=== PATIENT | male | born 1970 | race Two or more races ===

== ENCOUNTER 2016-12-26 19:12 | Emergency (ER) | payer MEDICAID ==
[2016-12-26] MEDS ORDERED: Sodium Chloride 0.9% 10 ML Syringe FLUSH PRN (19:39)
[2016-12-26 19:47] VITALS: BP 151/97
--- NOTE | 2016-12-26 20:06 | EDM.PDOC ---
ED HPI Trauma - General Chief Complaint: Upper Extremity Injury/Pain Stated Complaint: PUT A SCREW INTO HIS MIDDLE FINGER ON HIS LEFT BAKER Time Seen by Provider: 12/26/16 19:31 Source: Reports: Patient, Family (daughter) History Limitations: Reports: Language barrier - History of Present Illness INITIAL COMMENTS - FREE TEXT/NARRATIVE: Patient presents for evaluation and treatment of injury to the left hand third finger. 2 days ago the patient was screwing a board. The screw went through the board and punctured his left hand third finger on the ventral DIP joint. He states that since then he has been having extreme pain in the 3rd finger. He reports that when the fingers are flexed, the pain improves. He has extreme pain with extending the finger that radiates into his palm. He denies much pus or drainage from the puncture wound. He denies any fevers, chills, nausea or vomiting. He has also noticed some numbness and tingling to the finger. Tetanus is up-to-date. Patient speaks primarily [place]. His daughters are present translating for him. Pain/Injury Location: Reports: upper extremity, left Allergies/ADRs: Allergies No Known Allergies Allergy (Verified 12/26/16 19:27) Home Medications: Ambulatory Orders Acetaminophen/oxyCODONE [Percocet 325-5 MG] 1 tab PO Q6H PRN #15 tablet Past Medical History - Past Health History Medical/Surgical History: Denies Medical/Surgical History Social & Family History - Tobacco Use Smoking Status *Q: Never Smoker - Caffeine Use Caffeine Use: Reports: None - Alcohol Use Days Per Week of Alcohol Use: 2 Number of Drinks Per Day: 1 Total Drinks Per Week: 2 - Recreational Drug Use Recreational Drug Use: No Review of Systems - Review of Systems Review Of Systems: See Below Constitutional: Denies: chills, fever GI/Abdominal: Denies: Nausea, Vomiting Musculoskeletal: Reports: hand pain (left hand 3rd finger), joint swelling ( left hand 3rd finger ) Skin: Reports: erythema (involving the left hand 3rd finger to the distal palm) , wound (approximately 5mm puncture wound to the left hand 3rd finger ventral aspect over the DIP joint) Neurological: Reports: Numbness (left hand 3rd finger) Trauma Exam - Physical Exam Exam: See Below Exam Limited By: No limitations General Appearance: Reports: alert, WD/WN, no apparent distress Respiratory Exam: Reports: no respiratory distress, lungs clear, normal breath sounds Cardiovascular: Reports: normal peripheral pulses (2+ radial pulses bilterally ) , regular rate, rhythm Extremities: Reports: pain with movement (severe pain with extension to the left hand 3rd finger; pain improves with flexion), tenderness (to the left 3rd finger), other (left hand 3rd finger is erythematous and swollen.) Neurologic: Reports: alert, normal mood/affect Skin: Reports: Normal color, Warm/dry, Other (approximately 5mm closed puncture wound to the left hand 3rd ventral finger over the DIP joint) ED TRAUMA EXTREMITY PROCEDURES - Splinting Left Upper Extremity Splint site: left forearm Pre-procedure NV status: normal Post-procedure NV status: normal Splint material: other (ortho) Splint design: gutter (radial) Applied & form fitted by: provider, nurse Provider post-splint application NV check: NV status normal, good position Complications: Yes Course - Vital Signs Last Recorded V/S: Last Vital Signs Temp 36.4 C 12/26/16 19:22 Pulse 83 12/26/16 19:22 Resp 18 12/26/16 19:22 BP 151/97 H 12/26/16 19:22 Pulse Ox 98 12/26/16 19:22 - Orders/Labs/Meds Orders: Active Orders 24 hr Category Date Time Status Peripheral IV Care [RC] . DIRECTED Care 12/26/16 19:39 Active Fingers Third Digit Lt F2 [CR] Stat Exams 12/26/16 19:39 Taken Sodium Chloride 0.9% [Saline Flush] Med 12/26/16 19:39 Active 10 ml FLUSH ASDIRECTED PRN Peripheral IV Insertion Adult [OM.PC] Routine Oth 12/26/16 19:39 Ordered Medication Orders Sodium Chloride (Saline Flush) 10 ml FLUSH ASDIRECTED PRN PRN Reason: Keep Vein Open Last Admin: 12/26/16 20:25 Dose: 10 ml Labs: Laboratory Tests 12/26/16 12/26/16 Range/Units 19:45 19:45 WBC 8.31 (4.23-9.07) K/mm3 RBC 5.01 (4.63-6.08) M/mm3 Hgb 14.0 (13.7-17.5) gm/L Hct 42.4 (40.1-51.0) % MCV 84.6 (79.0-92.2) fl MCH 27.9 (25.7-32.2) pg MCHC 33.0 (32.2-35.5) g/dl RDW Std Deviation 43.5 (35.1-43.9) fL Plt Count 272 (163-337) K/mm3 MPV 10.3 (9.4-12.3) fl Neut % (Auto) 43.0 (34.0-67.9) % Lymph % (Auto) 36.6 (21.8-53.1) % [place] % (Auto) 8.7 (5.3-12.2) % Eos % (Auto) 10.7 H (0.8-7.0) Baso % (Auto) 1.0 (0.1-1.2) % Neut # (Auto) 3.58 (1.78-5.38) K/mm3 Lymph # (Auto) 3.04 (1.32-3.57) K/mm3 [place] # (Auto) 0.72 (0.30-0.82) K/mm3 Eos # (Auto) 0.89 H (0.04-0.54) K/mm3 Baso # (Auto) 0.08 (0.01-0.08) K/mm3 Sodium 141 (136-145) mEq/L Potassium 3.7 (3.5-5.1) mEq/L Chloride 105 (98-107) mEq/L Carbon Dioxide 25 (21-32) mEq/L Anion Gap 14.7 (5-15) BUN 11 (7-18) mg/dL Creatinine 0.8 (0.7-1.3) mg/dL Est Cr Clr Drug Dosing 105.58 mL/min Estimated GFR (MDRD) > 60 (>60) mL/min BUN/Creatinine Ratio 13.8 L (14-18) Glucose 141 H (74-106) mg/dL Calcium 8.7 (8.5-10.1) mg/dL Total Bilirubin 0.3 (0.2-1.0) mg/dL AST TNP ALT 41 (16-63) U/L Alkaline Phosphatase 102 (46-116) U/L C-Reactive Protein 1.5 H* (<1.0) mg/dL Total Protein 7.2 (6.4-8.2) g/dl Albumin 3.7 (3.4-5.0) g/dl Globulin 3.5 gm/dL Albumin/Globulin Ratio 1.1 (1-2) Meds: Medications Generic Name Dose Route Start Last Admin Trade Name Shan PRN Reason Stop Dose Admin Sodium Chloride 10 ml 12/26/16 19:39 12/26/16 20:25 Saline Flush FLUSH 10 ml ASDIRECTED PRN Administration Keep Vein Open Discontinued Medications Generic Name Dose Route Start Last Admin Trade Name Shan PRN Reason Stop Dose Admin Vancomycin HCl 1 gm/ Sodium 250 mls @ 250 mls/hr 12/26/16 19:41 12/26/16 20: 25 Chloride IV 12/26/16 20:40 Not Given ONETIME ONE Vancomycin HCl 1 gm/ Sodium 250 mls @ 250 mls/hr 12/26/16 19:59 12/26/16 20: 24 Chloride IV 12/26/16 20:58 250 mls/hr ONETIME ONE Administration Ceftriaxone Sodium 1 gm/ 100 mls @ 200 mls/hr 12/26/16 20:42 12/26/16 21:58 Sodium Chloride IV 12/26/16 21:11 200 mls/hr ONETIME ONE Administration Oxycodone/Acetaminophen 1 tab 12/26/16 22:00 12/26/16 22:10 Percocet 325-5 Mg PO 12/26/16 22:01 1 tab ONETIME ONE Administration - Re-Assessments/Exams Free Text/Narrative Re-Assessment/Exam: 12/26/16 19:[address] Jackson. Recommended starting vancomycin. Awaiting labs then will discuss case with ortho. Concern for tenosynovitis. 12/26/16 20:44 Labs returned. WBC is 8.31, hgb is 14.0 and plts aer 272 Sodium is 141, potassium is 3.7 and chloride is 105. Glucose is 141 CRP is 1.[address] Artis, orthopedics cushion assembler. Recommended splinting and Rocephin today, tomorrow and Wednesday. He will see the patient in clinic on Wednesday. Recommended soaks in warm soapy water 3 times a day for 30-45 minutes. Departure - Departure Time of Disposition: 21:43 Disposition: Home, Self-Care 01 Condition: fair Clinical Impression: Finger infection Prescriptions: Acetaminophen/oxyCODONE [Percocet 325-5 MG] 1 tab PO Q6H PRN #15 tablet PRN Reason: Pain Instructions: Cellulitis, Adult Referrals: PCP,None [Primary Care Provider] - Angel Luis Kraft MD [Physician] - Forms: ED Department Discharge Additional Instructions: You were given medication in the ER that affects your ability to drive operate machinery. No driving operating machinery within 12 hours of taking prescription narcotic pain medication. Percocet 1-2 tabs every 4-6 hours as needed for severe pain. Do not drive or operate machinery 12 hours of taking the Percocet. Percocet can be habit-forming , I recommend your take as few of these as needed to control your pain. Soak the finger with warm soapy water, with soap such as dial, 3 or 4 times a day for 30-45 minutes. Attempt to remove pus and skin by milking the wound. Wear the splint at all times, remove only to soak the finger. Rocephin given in ED tonight. Return to the ER tomorrow and Wednesday for intramuscular Rocephin injections. Follow up with Dr. Artis on Wednesday. Please call [phone] Wednesday morning to schedule with him for a Wednesday appointment. Elevate the arm, above the level of the heart, as much as you're able to. Please return to the ER should your symptoms change or worsen. - My Orders Last 24 Hours: My Active Orders 12/26/16 19:39 Peripheral IV Care [RC] . DIRECTED Fingers Third Digit Lt F2 [CR] Stat Sodium Chloride 0.9% [Saline Flush] 10 ml FLUSH ASDIRECTED PRN Peripheral IV Insertion Adult [OM.PC] Routine - Assessment/Plan Last 24 Hours: My Active Orders 12/26/16 19:39 Peripheral IV Care [RC] . DIRECTED Fingers Third Digit Lt F2 [CR] Stat Sodium Chloride 0.9% [Saline Flush] 10 ml FLUSH ASDIRECTED PRN Peripheral IV Insertion Adult [OM.PC] Routine
[2016-12-26] MEDS ORDERED: cefTRIAXone 1 GM in Sodium Chloride 0.9% 100 ML IV ONE (20:42)
[2016-12-26] MEDS ORDERED: Acetaminophen/oxyCODONE 325-5 MG Tab PO ONE (22:00)
--- NOTE | 2016-12-27 16:19 | CR ---
Left 3rd finger: Four views of the left 3rd finger were obtained. Comparison: No previous finger study. Small calcification seen off the corner base of the proximal phalanx at the MCP joint which is felt to represent an old injury. No acute fracture, dislocation or other bony abnormality is seen. Impression: 1. No acute bony abnormality is seen on left 3rd finger study. Diagnostic code #2
== END 2016-12-26 22:38 | disposition home or self-care (01) ==
LOC: JD.ED 19:12
DX: L08.9 Local infection of the skin and subcutaneous tissue, unspecified (principal); S61.233A Puncture wound without foreign body of left middle finger without damage to nail, initial encounter; W45.8XXA Other foreign body or object entering through skin, initial encounter
CPT/HCPCS: 29125; 36415; 73140; 80053; 85025; 86140; 96365; 96367; 99284; A9270; J0696; J3370; J7030; J7050

== ENCOUNTER 2025-07-01 12:30 | Emergency (ER) | payer SELFPAY ==
[2025-07-01] MEDS: Lidocaine 1% 2 ML ONE (13:17)
[2025-07-01 13:19] VITALS: BP 185/105; PULSE 63
== END 2025-07-01 13:23 | disposition home or self-care (01) ==
LOC: JD.ED 12:30
DX: S61.214A Laceration without foreign body of right ring finger without damage to nail, initial encounter (principal); L03.011 Cellulitis of right finger; Z79.899 Other long term (current) drug therapy; W26.0XXA Contact with knife, initial encounter; Y93.89 Activity, other specified
CPT/HCPCS: 12001; 96372; 99282; J0696; J2003